=== PATIENT | male | born 1975 | race Caucasian/White ===

== ENCOUNTER 2023-02-01 12:03 | Emergency (ER) | payer MEDICARE, MEDICAID ==
[~2023-02-01] VITALS: Ht 170.2 cm; Wt 93.0 kg
[~2023-02-01 12:03] MED LIST: Abilify PO; Celexa PO
[2023-02-01 12:10] VITALS: O2SAT 98
[2023-02-01] MEDS ORDERED: KETOROLAC 60MG/2ML VIAL IM ONE (12:30)
[2023-02-01] MEDS ORDERED: CYCLOBENZAPRINE 10MG TABLET PO SCH (12:45)
[2023-02-01 14:43] VITALS: BP 138/64; PULSE 75; RESP 16; TEMP 98.3
== END 2023-02-01 14:44 | disposition home or self-care (01) ==
LOC: ER 12:27
DX: S39.012A Strain of muscle, fascia and tendon of lower back, initial encounter (principal); Z88.0 Allergy status to penicillin; Z88.2 Allergy status to sulfonamides; F20.9 Schizophrenia, unspecified; Z90.49 Acquired absence of other specified parts of digestive tract; X58.XXXA Exposure to other specified factors, initial encounter; Y92.89 Other specified places as the place of occurrence of the external cause; Y93.89 Activity, other specified; Y99.8 Other external cause status
CPT/HCPCS: 99283; 96372; J1885

== ENCOUNTER 2024-04-08 11:33 | Emergency (ER) | payer BC, MEDICAID ==
[~2024-04-08] VITALS: Ht 177.8 cm; Wt 79.0 kg
[2024-04-08 11:36] VITALS: BP 121/82; PULSE 67; RESP 18; TEMP 36.6; O2SAT 99
== END 2024-04-08 15:56 | disposition left against medical advice (07) ==
LOC: ER 11:40
DX: N50.819 Testicular pain, unspecified (principal); Z53.21 Procedure and treatment not carried out due to patient leaving prior to being seen by health care provider